=== PATIENT | female | born 1980 | race Two or more races ===

== ENCOUNTER → 2019-05-08 14:53 | Outpatient (CLI) | payer MEDICAID | END | disposition home or self-care (01) | LOC: D.RAD 14:53 | PROVIDERS: ATTEND Pain Medicine Interventional Pain Medicine | DX: G58.8 Other specified mononeuropathies (principal); Z85.3 Personal history of malignant neoplasm of breast; M25.571 Pain in right ankle and joints of right foot; I97.2 Postmastectomy lymphedema syndrome; M54.5 Low back pain ==